=== PATIENT | female | born 1940 | race Native Hawaiian/Other Pacific Islander ===

== ENCOUNTER 2016-10-29 13:10 | Outpatient (CLI) | payer OTHER ==
[2016-10-29 13:23] LABS: PLATELET COUNT 256 K/uL (152-353)
[2016-10-29 13:44] LABS: POTASSIUM 4.1 mmol/L (3.6-5.2); SODIUM 141 mmol/L (136-145)
== END 2016-10-29 19:53 | disposition home or self-care (01) ==
LOC: LAB 13:10
PROVIDERS: Orthopaedic Surgery
DX: T84.59XD Infection and inflammatory reaction due to other internal joint prosthesis, subsequent encounter (principal); Z45.2 Encounter for adjustment and management of vascular access device; I10 Essential (primary) hypertension
CPT/HCPCS: 36415; 80053; 80202; 85027; 85651; 86140

== ENCOUNTER 2016-11-04 11:23 | Outpatient (CLI) | payer OTHER ==
[2016-11-04 11:54] LABS: PLATELET COUNT 222 K/uL (152-353)
[2016-11-04 12:02] LABS: POTASSIUM 3.6 mmol/L (3.6-5.2)
== END 2016-11-04 19:22 | disposition home or self-care (01) ==
LOC: LAB 11:23
PROVIDERS: Orthopaedic Surgery
DX: T84.59XD Infection and inflammatory reaction due to other internal joint prosthesis, subsequent encounter (principal); Z45.2 Encounter for adjustment and management of vascular access device; I10 Essential (primary) hypertension; R26.81 Unsteadiness on feet
CPT/HCPCS: 80053; 80202; 85027; 85651; 86140

== ENCOUNTER 2016-11-11 12:38 | Outpatient (CLI) | payer OTHER ==
[2016-11-11 13:00] LABS: PLATELET COUNT 183 K/uL (152-353)
[2016-11-11 13:50] LABS: POTASSIUM 4.7 mmol/L (3.6-5.2)
== END 2016-11-11 22:09 | disposition home or self-care (01) ==
LOC: LAB 12:38
PROVIDERS: Orthopaedic Surgery
DX: T84.59XD Infection and inflammatory reaction due to other internal joint prosthesis, subsequent encounter (principal); Z45.2 Encounter for adjustment and management of vascular access device; I10 Essential (primary) hypertension; R26.81 Unsteadiness on feet
CPT/HCPCS: 80053; 80202; 85027; 85651; 86140

== ENCOUNTER 2016-11-18 12:18 | Outpatient (CLI) | payer OTHER ==
[2016-11-18 12:45] LABS: PLATELET COUNT 195 K/uL (152-353)
[2016-11-18 13:00] LABS: POTASSIUM 4.5 mmol/L (3.6-5.2)
== END 2016-11-18 23:04 | disposition home or self-care (01) ==
LOC: LAB 12:18
PROVIDERS: Orthopaedic Surgery
DX: T84.59XD Infection and inflammatory reaction due to other internal joint prosthesis, subsequent encounter (principal); Z45.2 Encounter for adjustment and management of vascular access device; I10 Essential (primary) hypertension; R26.81 Unsteadiness on feet
CPT/HCPCS: 80053; 80202; 85027; 85651; 86140

== ENCOUNTER 2016-11-22 11:31 | Outpatient (CLI) | payer OTHER ==
[2016-11-22 12:23] LABS: POTASSIUM 4.4 mmol/L (3.6-5.2)
[2016-11-22 12:55] LABS: PLATELET COUNT 249 K/uL (152-353)
== END 2016-11-22 19:10 | disposition home or self-care (01) ==
LOC: LAB 11:31
PROVIDERS: Internal Medicine Infectious Disease
DX: T84.59XA Infection and inflammatory reaction due to other internal joint prosthesis, initial encounter (principal); B95.2 Enterococcus as the cause of diseases classified elsewhere; R50.9 Fever, unspecified
CPT/HCPCS: 80048; 85027; 86140

== ENCOUNTER 2018-12-26 11:21 | Emergency (ER) | payer OTHER ==
[~2018-12-26] VITALS: Ht 167.6 cm; Wt 29.9 kg
[2018-12-26 11:22] VITALS: TEMP 99
[2018-12-26] MEDS ORDERED: LISI10TA11 PO (11:43)
[2018-12-26] MEDS ORDERED: CARV6.25 PO (11:46)
[2018-12-26] MEDS ORDERED: NAMENDA5 MG PO (11:47)
[2018-12-26] MEDS ORDERED: LYRICA75 MG PO (11:48)
[2018-12-26] MEDS ORDERED: OXYC10TAB PO (11:49)
[2018-12-26 13:30] VITALS: BP 156/84
== END 2018-12-26 13:35 | disposition home or self-care (01) ==
LOC: ED 11:21
DX: M79.18 Myalgia, other site (principal); Z98.890 Other specified postprocedural states
CPT/HCPCS: 96372; 99283; J1885; J2930

== ENCOUNTER 2019-01-01 11:24 | Emergency (ER) | payer OTHER ==
[~2019-01-01] VITALS: Ht 160 cm; Wt 90.7 kg
[~2019-01-01 11:24] MED LIST: CARV6.25 PO; LISI10TA11 PO; LYRICA75 MG PO; NAMENDA5 MG PO; OXYC10TAB PO
[2019-01-01 11:27] VITALS: TEMP 97.2
[2019-01-01 13:00] VITALS: BP 166/92
== END 2019-01-01 13:17 | disposition home or self-care (01) ==
LOC: ED 11:24
DX: M54.5 Low back pain (principal); Z98.890 Other specified postprocedural states
CPT/HCPCS: 96372; 99283; J2175; J2405

== ENCOUNTER 2022-01-02 21:25 | Emergency (ER) | payer OTHER ==
[~2022-01-02] VITALS: Ht 160 cm; Wt 83.9 kg
[2022-01-02 23:59] VITALS: BP 159/60; TEMP 98
== END 2022-01-02 23:59 | disposition home or self-care (01) ==
LOC: ED 21:25
DX: M79.18 Myalgia, other site (principal); Z96.641 Presence of right artificial hip joint; W17.89XA Other fall from one level to another, initial encounter; Y92.89 Other specified places as the place of occurrence of the external cause
CPT/HCPCS: 96372; 99283; J1885; J2270